=== PATIENT | male | born 1990 | race Caucasian/White ===

== ENCOUNTER → 2018-11-17 | Outpatient (CLI) | payer BC ==
--- NOTE | 2018-11-17 11:35 | US ---
EXAMINATION TYPE: US abdomen limited DATE OF EXAM: 11/17/2018 COMPARISON: NONE CLINICAL HISTORY: B19.2 Unspecified viral hepatitis C. Hep C EXAM MEASUREMENTS: Liver Length: 15.1 cm Gallbladder Wall: 0.2 cm CBD: 0.3 cm Right Kidney: 10.5 x 5.0 x 5.1 cm Pancreas: visualized portions wnl, tail obscured by overlying midline bowel gas Liver: Very minimally coarsened echotexture throughout. No discrete mass is identified. Gallbladder: wnl Evidence for sonographic Sevilla's sign: no CBD: wnl Right Kidney: Slightly prominent renal pelvis without javid hydronephrosis. IMPRESSION: Very minimally coarsened hepatic echotexture compatible with the patient's provided histo ry of hepatocellular disease. No focal hepatic mass is seen on today's examination.
== END | disposition home or self-care (01) ==
LOC: RADUSWWP 10:05
PROVIDERS: ATTEND Internal Medicine Infectious Disease
DX: R93.2 Abnormal findings on diagnostic imaging of liver and biliary tract (principal)
CPT/HCPCS: 76705

== ENCOUNTER → 2021-03-29 | Outpatient (CLI) | payer BC ==
--- NOTE | 2021-03-29 12:09 | US ---
EXAMINATION TYPE: US liver DATE OF EXAM: 03/29/2021 COMPARISON: 03/20/2019 CLINICAL HISTORY: R74.8Abnormal levels of other serum enzymes, B18.2. EXAM MEASUREMENTS: Liver Length: 17.1 cm Gallbladder Wall: 0.2 cm CBD: 0.4 cm Right Kidney: 12.9x5.9x5.0 cm Pancreas: wnl in its visualized portions Liver: Increased attenuation Gallbladder: wnl Evidence for sonographic Sevilla's sign: No CBD: wnl Right Kidney: Right renal inf cyst with posterior calc measuring 1.2x0.9x0.9cm IMPRESSION: There could be underlying hepatic steatosis, hepatocellular disease, true hepatic span is not measured accurately and may under represent size of the liver
== END | disposition home or self-care (01) ==
LOC: RADUSWWP 08:10
PROVIDERS: ATTEND Family Medicine
DX: R74.8 Abnormal levels of other serum enzymes (principal); N28.1 Cyst of kidney, acquired
CPT/HCPCS: 76705

== ENCOUNTER → 2021-04-04 | Outpatient (CLI) | payer BC ==
--- NOTE | 2021-04-04 11:19 | CONS ---
CONSULTATION DATE OF SERVICE: 04/04/2021 This 30-year-old gentleman has been evaluated in [facility] for possible obstructive sleep apnea-hypopnea syndrome. HISTORY OF PRESENT ILLNESS/SLEEP-WAKE EVALUATION: Patient's usual sleep schedule on weekdays is from midnight until 8 or 9 a.m. and on weekends from 1 a.m. until 10 a.m. No problems with falling asleep. No TV in bedroom. He usually sleeps on the back position and, according to his , he has very loud snoring and witnessed episodes of stopped breathing during sleep. The patient wakes up from sleep once with nocturia. No history of hypnagogic hallucinations, and the patient rarely sees any dreams. In the morning the patient wakes up tired, feels sleepy during the day. [place] Sleepiness Scale is significantly increased to 12. Usually he does not take naps, though. No history of sleep paralysis or cataplexy. PAST MEDICAL HISTORY: Positive for hypertension, hyperlipidemia, acid reflux, hepatitis C. PAST SURGICAL HISTORY: None. MEDICATIONS: 1. Lisinopril 10 mg twice a day. 2. Amlodipine once a day. 3. Clonidine 3 times a day; patient does not know the dose. SOCIAL HISTORY: Positive for smoking up to two packs a day for 5 years; quit 2 years ago. FAMILY HISTORY: Diabetes. REVIEW OF SYSTEMS: No fevers. No double vision. No recent chest pain. No shortness of breath. No abdominal pain. No bleeding episodes. No blood in the urine. No seizure episodes. Snoring, awakenings from sleep, tiredness and sleepiness during the day. PHYSICAL EXAMINATION: GENERAL: Pleasant gentleman without distress. VITAL SIGNS: BP 127/85, HR 90, RR 16, height 6 feet 0 inches, weight 256.4, body mass index 34.7, temperature 97.7, oxygen saturation at room air 98%. HEENT: PERRLA, EOMI, evaluation of oropharynx showed tongue protrudes midline. Extremely low position of soft palate; Mallampati IV. NECK: Supple, no JVD. Thyroid is not palpable. Neck is wide, 17-1/2 inches in circumference. LUNGS: Clear to percussion and to auscultation. Good air exchange. No wheezing or rhonchi. HEART: S1, S2 regular. No murmurs, gallops, or rubs. ABDOMEN: Soft and nontender. Bowel sounds are present. No organomegaly appreciated. EXTREMITIES: No clubbing or cyanosis. MECHANICAL DESIGN DRAFTER: Awake, alert, and oriented X3. Cranial nerves 2 to 7 intact. There is no fasciculation or atrophy. noted. No focal deficits observed. IMPRESSION: 1. Loud snoring, witnessed episodes of stopped breathing during sleep, extremely low position of soft palate, Mallampati IV, wide neck, 17-1/2 inches in circumference, sleepiness, [place] Sleepiness Scale is 12; obstructive sleep apnea-hypopnea syndrome. 2. Obesity. BMI 34.7. 3. Hypertension. The patient is on 3 medications for controlling blood pressure. 4. History of hepatitis C. 5. Hyperlipidemia. 6. Acid reflux. PLAN: 1. Home sleep apnea test for evaluation of patient's breathing during sleep. 2. CPAP/BiPAP titration if sleep study confirms obstructive sleep apnea-hypopnea syndrome. 3. Preferable position during sleep on the side. 4. No driving if patient feels any sleepiness. 5. I will see patient for follow up visit to explain results of testing and following plan. Thank you very much for referring this patient for consultation. Sincerely, Francesco Hinson MD, PhD, FAASM Diplomat of [employer] Sleep Medicine Board of [employer] [employer] Learning [employer] Development Intern of [facility] [place] MMODL / THONG: [id number] /
== END ==
LOC: SLEEP 10:04
PROVIDERS: ATTEND Internal Medicine
DX: G47.33 Obstructive sleep apnea (adult) (pediatric) (principal); E66.9 Obesity, unspecified; Z68.34 Body mass index [BMI] 34.0-34.9, adult; I10 Essential (primary) hypertension; E78.5 Hyperlipidemia, unspecified; K21.9 Gastro-esophageal reflux disease without esophagitis; Z86.19 Personal history of other infectious and parasitic diseases; Z87.891 Personal history of nicotine dependence; Z79.899 Other long term (current) drug therapy
CPT/HCPCS: 99211

== ENCOUNTER 2023-02-05 11:53 | Emergency (ER) | payer BC ==
[2023-02-05 12:16] VITALS: RESP 16
--- NOTE | 2023-02-05 12:42 | US ---
EXAMINATION TYPE: US venous doppler duplex LE RT DATE OF EXAM: 02/05/2023 12:17 PM COMPARISON: NONE CLINICAL INDICATION: Male, 32 years old with history of swelling to right leg for 4 days; Right leg s welling SIDE PERFORMED: Right TECHNIQUE: The lower extremity deep venous system is examined utilizing real time linear array sonog keyshawn with graded compression, doppler sonography and color-flow sonography. VESSELS IMAGED: Common Femoral Vein Deep Femoral Vein Greater Saphenous Vein * Femoral Vein Popliteal Vein Small Saphenous Vein * Proximal Calf Veins (* superficial vessels) Grayscale, color doppler, spectral doppler imaging performed of the deep veins of the right lower ext remity. There is normal flow, compressibility, vascular waveforms. Right Leg: Negative for DVT IMPRESSION: No ultrasound evidence for deep venous thrombosis of the right lower extremity.
--- NOTE | 2023-02-05 15:18 | ED ---
General Adult HPI - General Chief complaint: Extremity Problem,Nontraumatic Stated complaint: R ankle swelling Time Seen by Provider: 02/05/23 14:40 Source: patient, RN notes reviewed, old records reviewed Mode of arrival: ambulatory Limitations: no limitations - History of Present Illness Initial comments: This is a 32-year-old male who presents emergency complaining of right ankle and foot tenderness. Patient states she was doing quite a bit of work outside a few days ago and ever since sent the foot is become very tender and swollen. Patient states it is difficult to stand up because it hurts much. Patient denies any blunt trauma to the area. Patient denies any redness or warmth. Patient denies any calf tenderness. Patient states he went to an urgent care and they sent him into the emergency department. - Related Data Home Medications Medication Instructions Recorded Confirmed Metoprolol Succinate (ER) [Toprol 50 mg PO HS 02/05/23 02/05/23 Xl] amLODIPine 10 mg PO HS 02/05/23 02/05/23 cloNIDine HCL 0.2 mg PO TID 02/05/23 02/05/23 lisinopriL 40 mg PO BID 02/05/23 02/05/23 Previous Rx's Medication Instructions Recorded Ibuprofen [Motrin] 600 mg PO Q6HR PRN #20 tab 02/05/23 Allergies Allergy/AdvReac Type Severity Reaction Status Date / Time No Known Allergies Allergy Verified 02/05/23 15:57 Review of Systems ROS Statement: Those systems with pertinent positive or pertinent negative responses have been documented in the HPI. ROS Other: All systems not noted in ROS Statement are negative. Past Medical History Past Medical History: Hypertension History of Any Multi-Drug Resistant Organisms: None Reported Past Surgical History: No Surgical Hx Reported Past Psychological History: No Psychological Hx Reported Smoking Status: Never smoker Past Alcohol Use History: None Reported Past Drug Use History: None Reported General Exam - General Exam Comments Initial Comments: GENERAL Patient is well-developed and well-nourished. Patient is in mild distress. EYES Patient's pupils are equal and round. Extraocular motion is intact SKIN Unremarkable NEURO The patient is alert and oriented 3 PYSCH Patient has normal interpersonal interactions. MUSCULOSKELETAL Patient's ankle is swollen and some tenderness in the lateral malleolus as well and she proximal lateral foot. Patient has no calf tenderness. There is no swelling of the leg. Limitations: no limitations Course Vital Signs 02/05/23 12:13 Temperature 97.5 F L Pulse Rate 66 Respiratory 16 Rate Blood Pressure 146/67 O2 Sat by Pulse 98 Oximetry Medical Decision Making - Medical Decision Making Was pt. sent in by a medical professional or institution (, PA, SANITARIAN INSPECTOR, urgent care, hospital, or long term...) When possible be specific @ -No Did you speak to anyone other than the patient for history (EMS, parent, family, police, friend...)? What history was obtained from this source @ -No Did you review nursing and triage notes (agree or disagree)? Why? @ -I reviewed and agree with nursing and triage notes Were old charts reviewed (outside hosp., previous admission, EMS record, old EKG, old radiological studies, urgent care reports/EKG's, long term records)? Report findings @ -No old charts were reviewed Differential Diagnosis (chest pain, altered mental status, abdominal pain women, abdominal pain men, vaginal bleeding, weakness, fever, dyspnea, syncope, headache, dizziness, GI bleed, back pain, seizure, CVA, palpatations, mental health, musculoskeletal)? @ -Differential Musculoskeletal Muscular strain, contusion, ligament sprain, fracture, arthritis, septic arthritis, bursitis, cellulitis, muscle spasm, nerve compression, DVT, arterial occlusion, herpes zoster, electrolyte abnormality, tumor.... This is not meant to be in all inclusive list EKG interpreted by me (3pts min.). @ -As above X-rays interpreted by me (1pt min.). @ -X-ray of the ankle and foot show no acute abnormality CT interpreted by me (1pt min.). @ -None done U/S interpreted by me (1pt. min.). @ -Ultrasound shows no DVT What testing was considered but not performed or refused? (CT, X-rays, U/S, labs)? Why? @ -None What meds were considered but not given or refused? Why? @ -None Did you discuss the management of the patient with other professionals (professionals i.e. IAN Anderson, SANITARIAN INSPECTOR, lab, RT, psych nurse, social group worker, strand forming machine operator, teacher, correctional officer, welfare case worker)? Give summary @ -No Was smoking cessation discussed for >3mins.? @ -No Was critical care preformed (if so, how long)? @ -No Were there social determinants of health that impacted care today? How? (Homelessness, low income, unemployed, alcoholism, drug addiction, transportation, low edu. Level, literacy, decrease access to med. care, nursing home, rehab)? @ -No Was there de-escalation of care discussed even if they declined (Discuss DNR or withdrawal of care, Hospice)? DNR status @ -No What co-morbidities impacted this encounter? (DM, HTN, Smoking, COPD, CAD, Cancer, CVA, ARF, Chemo, Hep., AIDS, mental health diagnosis, sleep apnea, morbid obesity)? @ -None Was patient admitted / discharged? Hospital course, mention meds given and route, prescriptions, significant lab abnormalities, going to OR and other pertinent info. @ -Patient had an air splint placed and will be sent home on Motrin. Patient also will follow-up with orthopedics Undiagnosed new problem with uncertain prognosis? @ -No Drug Therapy requiring intensive monitoring for toxicity (Heparin, Nitro, Insulin, Cardizem)? @ -No Were any procedures done? @ -No Diagnosis/symptom? @ -Ankle sprain Acute, or Chronic, or Acute on Chronic? @ -Acute Uncomplicated (without systemic symptoms) or Complicated (systemic symptoms)? @ -Uncomplicated Side effects of treatment? @ -No Exacerbation, Progression, or Severe Exacerbation? @ -No Poses a threat to life or bodily function? How? (Chest pain, USA, VT, pneumonia, PE, COPD, DKA, ARF, appy, cholecystitis, CVA, Diverticulitis, Homicidal, Suicidal, threat to staff... and all critical care pts) @ -No Disposition Clinical Impression: Ankle sprain Disposition: HOME SELF-CARE Instructions (If sedation given, give patient instructions): Ankle Sprain (ED) Prescriptions: Ibuprofen [Motrin] 600 mg PO Q6HR PRN #20 tab PRN Reason: For pain Is patient prescribed a controlled substance at d/c from ED?: No Referrals: Charly Colunga MD [Primary Care Provider] - 1-2 days Time of Disposition: 16:38
--- NOTE | 2023-02-05 15:48 | XR ---
EXAMINATION TYPE: XR ankle complete RT DATE OF EXAM: 02/05/2023 COMPARISON: NONE HISTORY: Pain FINDINGS: Three views of the ankle demonstrate the ankle mortise to be intact and symmetric. The joint spaces are preserved. The osseous structures are intact. Diffuse soft tissue edema. Tiny spur at the Achil les insertion IMPRESSION: 1. No definite acute fracture or dislocation, if symptoms persist follow-up study in 7 to 10 days wou ld be suggested. 2. Soft tissue edema.
--- NOTE | 2023-02-05 15:50 | XR ---
EXAMINATION TYPE: XR foot complete RT DATE OF EXAM: 02/05/2023 COMPARISON: NONE HISTORY: Pain TECHNIQUE: Three views are submitted. FINDINGS: The osseous structures are intact. There is no acute fracture or dislocation. Joint spaces are p reserved. There is soft tissue edema. A tiny spur at the Achilles insertion of the calcaneus. IMPRESSION: 1. No acute fracture or dislocation. If symptoms persist, follow-up exam in 7 to 10 days could be ob tained.
[2023-02-05 17:10] VITALS: BP 126/87; PULSE 56; TEMP 97.9
== END 2023-02-05 17:26 | disposition home or self-care (01) ==
LOC: EC 11:53
DX: S93.401A Sprain of unspecified ligament of right ankle, initial encounter (principal); I10 Essential (primary) hypertension; Z79.899 Other long term (current) drug therapy; X50.9XXA Other and unspecified overexertion or strenuous movements or postures, initial encounter
CPT/HCPCS: 99284